=== PATIENT | male | born 1985 | race Caucasian/White ===

== ENCOUNTER → 2017-07-04 | Day surgery (SDC) | payer MEDICAID ==
[~2017-07-04] VITALS: Ht 188 cm; Wt 105.2 kg
[~2017-07-04] MED LIST: ADVIL200 MG PO; ALEVE220 MG PO; AMOXICILLIN 50500 MG PO; CLINDAMYCIN HC300 MG PO; DARVOCET-N6 EACH/PAK PO; ETODOLAC200 MG PO; FLEXERIL10 M1 PO; FLEXERIL10 MG PO; HYDROCODONE1 TABLET PO; IBU-8800 MG PO; KEFLEX 500MG.500 MG PO; LORTAB 5/500 501 TAB PO; LORTAB 500 MG-71 TAB PO; MOTRIN600 MG PO; NAPROSYN 500MG500 MG PO; NOMEDS; SULFAMETHOXAZOL1 TA6 PO; ULTRAM50 MG PO; VICODIN 5/500 T1 TAB PO; VOLTAREN75 MG PO
--- NOTE | 2017-07-04 07:01 | Emergency Room Report ---
History of Present Illness Time Seen by [id number] Presenting Problem in Triage Pt arrived:Walked Presenting Problem:C/O PAIN TO RECTUM WITH SMALL AMOUNT OF BLEEDING PRESENT. 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 N Clinical Suspician of Infection? N Mental Status: 1 - Regular (Normal Baseline) Sepsis Risk:Low Sepsis Risk Have you (or family members/close friends) recently traveled outside the [place]? N If Yes, where/when: Have you had exposure to infectious disease within the past month? N TB? Other? Specify: Source patient, RN notes reviewed, old records Exam Limitations no limitations Comment pt with 1 day hx of rectal pain with no gross bleeding Cardiac Chest Pain Chest pain indicative of cardiac No Timing/Duration this morning Severity moderate ALLERGIES Coded Allergies: codeine (07/04/17) Uncoded Allergies: COMBINATION INJECTION FOR PAIN (NA-NAUSEA/VOMITING 04/13/12) Home Medications Reported Medications Naproxen Sodium (Aleve) 440 MG PO PRN Ibuprofen (Advil) 400 MG PO PRN History Medical History General CAD? No Angina: No CA: No Hypertension? No Hyperlipidemia? No CHF? No DVT? No PE? No COPD? No Asthma? No Anemia? No GERD? No Gastric ulcers? No GI Bleed? No Hernia? No Thyroid Problems? No Hypothyroidism? No CVA? No Seizures? No Diabetes? No Renal Insuffiency? No End Stage Renal Disease? No UTI? No Stones? No BPH? No GB Disease: No Nephritic Syndrome? No Asplenia? No Hepatitis? No Sickle Cell Disease? No Arthritis? No Migraines? No Cataracts? No Glaucoma? No MRSA? No HIV? No TB? No Anxiety? No Depression? No Cancer? No More? No Immunization Hx DT/Tetanus 1-4 YRS Surgical Hx Previous Surgery?Y WISDOM TEETH Family History Family Hx Diabetes Yes CAD Yes Hypertension Yes Hyperlipidemia No Cancer Yes TB No Social History Smoking Hx Smoker: Current Every Day Smoker Tobacco: Yes Type Cigarettes Packs/day 1 1/2 - 2 Packs Alcohol Alcohol: No Drugs none Review of Systems All Other Systems Reviewed and Negative Constitutional denies fever Eyes denies drainage ENT denies: ear pain, epistaxis, throat pain. Respiratory denies cough, denies shortness of breath, denies wheezing Cardiovascular denies chest pain, denies palpitations, denies syncope Gastrointestinal see HPI, denies abdominal pain, denies diarrhea, denies vomiting, other Genitourinary denies: dysuria, frequency, hesitancy, hematuria. Musculoskeletal denies back pain, denies joint pain, denies neck pain Skin denies rash Psychiatric/Neurological denies headache, denies seizure Physical Exam Vital Signs Vital Signs Date Time Temp Pulse Resp B/P Pulse O2 O2 Flow FiO2 Ox Delivery Rate 07/04 725 65 16 129/56 99 07/04 720 16 07/04 618 98.5 87 18 189/82 99 - WBC >12,000 or <4,000 or 10% bands? 2 or more SIRS Criteria Met? B/P:189/82 MAP:117 Creatinine >2.0? UA output<0.5ml/kg/hr for 2 hrs? Platelet count >100,000? Lactate >2.0mmol/1? INR >1.2 or PTT > than 60 sec? Evidence of Organ Dysfunction? Provider documented clinical suspician of infection? N Sepsis Criteria Count: 0 Sepsis Risk: Low Sepsis Risk General Appearance no apparent distress Eye Exam - bilateral eye PERRL, bilateral eye EOMI Ear, Nose, Throat normal ENT inspection Neck supple Respiratory Status No: respiratory distress. Lung Sounds bilateral: lungs clear. Cardiovascular regular rate/rhythm, no gallop, no JVD Peripheral Pulses Pulses normal Yes Gastrointestinal soft Extremities normal inspection Strength 4 Upper Ext (L), 4 Upper Ext (R), 4 Lower Ext (L), 4 Lower Ext (R) Rectal hemorrhoids Neurologic alert, microbial specialist II-XII nml as tested, no motor/sensory deficits Reflexes Reflexes normal No Mental status normal mood/affect Skin intact Medical Decision Making LABS/Meds/Orders Pt receiving controlled substance in ED? No Results/Orders Laboratory Tests 07/04/17 0715: Sodium 140, Potassium 3.5, Chloride 104, Carbon Dioxide 26, BUN 9, Creatinine 0.9, Estimated Creat Clear 174, Estimated GFR (MDRD) 97, Glucose 126 H, Calcium 8.9, Total Bilirubin 0.2, AST 19, ALT 22, Alkaline Phosphatase 53, Total Protein 7.0, Albumin 3.8, Globulin 3.2, Albumin/Globulin Ratio 1.2, PT 10.9, INR 1.01, WBC 9.7, RBC 4.89, Hgb 15.1, Hct 45.8, MCV 93.6, RDW 12.5, Plt Count 210, MPV 8.7, Gran % 73.0, Gran # 7.1, Lymphocytes % 19.1, Monocytes % 6.7, Eosinophils % 0.9, Basophils % 0.3, Lymphocytes # 1.9, Monocytes # 0.7, Eosinophils # 0.1, Basophils # 0.0, PUBS MCHC 33.0, MCH 30.9 Current Medication Orders Sig/Salena Start time Last Medication Dose Route Stop Time Status Admin Ondansetron HCl 0 .STK-MED ONE 07/04 720 DC .ROUTE Morphine Sulfate 0 .STK-MED ONE 07/04 719 DCr .ROUTE Morphine Sulfate 2 MG ONCE ONE 07/04 715 DCr 07/04 IV 07/04 Ondansetron HCl 4 MG ONCE ONE 07/04 715 DC 07/04 IV 07/04 Sodium Chloride 10 ML PRN PRN 07/04 715 AC IV 07/05 701 Orders Procedure Date/time Status IV SALINE LOCK 07/04 702 Active PROTHROMBIN TIME 07/04 702 Complete COMPLETE METABOLIC PANEL 07/04 702 Complete CBC WITH AUTO DIFF 07/04 702 Complete Departure Departure Time of Disposition 704 Disposition Still a Patient Clinical Impression Primary Impression: Hemorrhoids Qualifiers: Hemorrhoid type: unspecified Qualified Code: K64.9 - Unspecified hemorrhoids Condition STABLE Referrals Myke Clement MD discussed with dr clement ED Critical Care Critical Care No Comments will have op surg today at 0751
[2017-07-04 07:20] LABS: HEMOGLOBIN 15.1 g/dL (14.1-18.0); LYMPH # 1.9 K/mm3 (0.7-4.5); LYMPH % 19.1 % (10-50)
--- NOTE | 2017-07-04 08:31 | HISTORY AND PHYSICAL REPORT ---
History of Present Illness Chief Complaint: Rectal pain History of Present Illness: Patient is a 31-year-old white male. He states that yesterday evening he had developed multiple bowel movements. He then had a significant swelling and tender area. He was unable sleep through the night and due to the severe pain he presented to the emergency department early this morning. He was found to have a very large hemorrhoid. Surgery was contacted regarding recommendations. Past Medical History Denies: hypertension, asthma. Surgical History Previous Surgery?Y WISDOM TEETH Allergies Coded Allergies: codeine (07/04/17) Uncoded Allergies: COMBINATION INJECTION FOR PAIN (NA-NAUSEA/VOMITING 04/13/12) Medications: Reported Medications Naproxen Sodium (Aleve) 440 MG PO PRN Ibuprofen (Advil) 400 MG PO PRN Smoking Hx Tobacco: Yes Smoker: Current Every Day Smoker Type: Cigarettes Packs/day: 1 1/2 - 2 Packs Are you/the child exposed to second-hand smoke: Yes Alcohol Alcohol: No Hx of Drug Use Drug Use? No Review of Systems Constitutional No: chills. Skin No: diaphoresis. Immune/allergy No: anaphalaxis. Eyes No: vision loss. ENT No: ear drainage. Respiratory No: shortness of air. Cardiovascular No: chest pain. GI No: abdomen. (male) No: hematuria. Musculoskeletal No: extremity swelling. Heme No: bleeding. Endocrine No: cold intolerance. Neurological No: change in LOC. Physical Exam Exam General appearance no acute distress Respiratory clear to auscultation Cardiovascular normal heart sounds Findings/Data Rectal examination reveals a very large acutely thrombosed swollen lateral hemorrhoid. Its markedly tender to even light palpation. Dx/assessment/plan Problem List 1. Hemorrhoids Code status: full code Plan: Patient has a very large acutely thrombosed hemorrhoid. Given its large size and extreme discomfort plan will be for simple hemorrhoidectomy under anesthesia. at 0831
--- NOTE | 2017-07-04 11:18 | Operative Note ---
Surgeon/Diagnoses Surgeon/Family Medicine Physician(s) Date of procedure: 07/04/17 Surgeon: Myke Clement Diagnoses Pre-op diagnosis: Acute thrombosed hemorrhoid Post-op diagnosis Same Procedure Procedure Procedure: External hemorrhoidectomy for acute thrombosed hemorrhoid Indications: PIPO MCCALLUM JR is a 31 year-old Male. He had several bowel movements yesterday evening and then developed some swelling at the anal area. He develops severe anal pain. He was unable to sleep through the night and presented to the emergency department this morning in which time he was found to have a large thrombosed hemorrhoid. Surgery was contacted for recommendations and the patient was seen and examined. He had a large thrombosed severely painful external hemorrhoid. Plan was made for hemorrhoidectomy in the operating room. Findings: Large acutely thrombosed external hemorrhoid in the LEFT posterior lateral location with very large amount of blood clot. Procedure Description: Consent was obtained the patient was taken to the operating room. Gen. anesthesia was induced. She was positioned in traditional lithotomy position. The area was prepped and draped in the standard surgical fashion. Anoscope was inserted. Incision was made over the large hemorrhoidal swelling in the LEFT posterior lateral location. Large amount of blood clot was evacuated and some of this was suctioned out. Overlying anoderm was excised and in a piecemeal fashion multiple blood clots were removed from the hemorrhoid with some use of Metzenbaum dissection. Tissue was sent off as specimen. Wound was irrigated. Anoderm was closed with interrupted 3-0 chromic sutures. Local anesthetic was infiltrated. Absorbent gauze dressing was applied. EBL (ml): 25 Anesthesia: Gen. via LMA Specimens: Hemorrhoid tissue Disposition Disposition: To PACU at 1118
--- NOTE | 2017-07-04 11:26 | Anesthesia Record ---
Anesthesia Record Part II Discharge time: 1154 Destination: Same day surgery PACU nurse assessment review? Yes Patient is: Stable Anesthesia complications? No at 1127
--- NOTE | 2017-07-04 11:26 | Anesthesia Record ---
Anesthesia Record Part I Total IV fluids: 1000 EBL (ml): 25 Urine Output: 30 B/P: 139/64 % SaO2: 96 Pulse: 105 Resps: 16 Temp: 97.0 Patient is: Drowsy, Nasal O2, Stable Stable to PACU at: 1124 at 1126
[2017-07-04 13:05] VITALS: BP 133/74
== END ==
LOC: ER 06:12 → SDC 09:51
PROVIDERS: Emergency Medicine; Surgery
PROC: 06BY4ZC Excision of Hemorrhoidal Plexus, Percutaneous Endoscopic Approach (ICD-10-PCS; principal; 2017-07-04 09:50)
DX: K64.5 Perianal venous thrombosis (principal)
CPT/HCPCS: J0131; J2405